=== PATIENT | female | born 1965 | race Caucasian/White ===

== ENCOUNTER 2017-12-13 20:12 | Emergency (ER) | payer BC ==
[~2017-12-13] VITALS: Ht 172.7 cm; Wt 68.2 kg
[2017-12-13 20:31] VITALS: Ht 172.7 cm; Wt 68.2 kg
[2017-12-13] MEDS ORDERED: LITHIUM CARBON150 MG PO (20:34)
[2017-12-13] MEDS ORDERED: NORVASC5 MG PO (20:35)
[2017-12-13] MEDS ORDERED: PROPRANOLOL HCL20 MG PO (20:35)
[2017-12-13] MEDS ORDERED: IMIPRAMINE10 MG PO (20:36)
[2017-12-13] MEDS ORDERED: ZANAFLEX4 MG PO (20:36)
[2017-12-13] MEDS ORDERED: EFFEXOR XR150 MG PO (20:37)
[2017-12-13 21:16] LABS: BASOPHILS 0.7 % (0-2); EOSINOPHILS 2.2 % (0-7); HEMATOCRIT 44.4 % (36.0-48.0); HEMOGLOBIN 14.9 g/dL (12-16); IMMATURE GRANULOCYTES 0.1 % (0-5); LYMPHOCYTES 34.7 % (15-50); MCH 28.6 pg (26.0-34.0); MCHC 33.6 g/dL (31.0-37.0); MCV 85.2 fL (80.0-100.0); NEUTROPHILS 56.3 % (40-80); PLATELET COUNT 266 10x3/uL (130-400); RBC 5.21 10x6/uL (4.00-5.40); RDW 13.4 % (11.5-14.5); WBC 6.7 10x3/uL (4.8-10.8)
[2017-12-13 21:24] LABS: APPEARANCE CLEAR (CLEAR); COLOR YELLOW (YELLOW)
[2017-12-13 21:25] LABS: BACTERIA MANY /hpf (NONE SEEN); BILIRUBIN NEGATIVE (NEGATIVE); GLUCOSE NEGATIVE (NEGATIVE); KETONE NEGATIVE (NEGATIVE); MUCUS <1+ /lpf (NONE SEEN); NITRITE NEGATIVE (NEGATIVE); PROTEIN NEGATIVE (NEGATIVE); RED CELLS - URINE OCC /hpf (0-5); UROBILINOGEN NORMAL (NORMAL); WHITE CELLS - URINE 0-5 /hpf (0-5)
[2017-12-13 21:39] LABS: ANION GAP 13.5 mmol/L (8-16); CALCIUM 10.4 mg/dL (8.5-10.1); CARBON DIOXIDE 24.2 mmol/L (21.0-32.0); CREATININE - SERUM 0.9 mg/dL (0.6-1.3); POTASSIUM - SERUM 3.7 mmol/L (3.5-5.1); THYROID STIMULATING HORMONE 0.8 uIU/mL (0.36-3.74)
[2017-12-13 21:52] LABS: UDS - AMPHET POSITIVE QUAL (NEGATIVE); UDS - BARB NEGATIVE QUAL (NEGATIVE); UDS - BENZO NEGATIVE QUAL (NEGATIVE); UDS - COCAINE NEGATIVE QUAL (NEGATIVE); UDS - OPIATE NEGATIVE QUAL (NEGATIVE); UDS - PCP NEGATIVE QUAL (NEGATIVE); UDS - THC NEGATIVE QUAL (NEGATIVE)
[2017-12-14 01:25] VITALS: BP 113/75
== END 2017-12-14 02:02 ==
LOC: D.ER 20:12
PROVIDERS: Family Medicine
DX: F32.9 Major depressive disorder, single episode, unspecified (principal); R45.851 Suicidal ideations; I10 Essential (primary) hypertension